=== PATIENT | male | born 1965 | race Two or more races ===

== ENCOUNTER 2023-09-14 03:42 | Emergency (ER) | payer OTHER ==
[~2023-09-14] VITALS: Ht 170.2 cm; Wt 83.9 kg
[2023-09-14] MEDS ORDERED: RINGERS SOLUTION,LACTATED 1,000 ML IV STA (04:48)
[2023-09-14] MEDS ORDERED: MEPERIDINE HCL/PF 50 MG/ML VIAL IM STA (04:49)
[2023-09-14] MEDS ORDERED: HYOSCYAMINE SULFATE 0.125 MG TAB.SUBL SL STA (04:49)
[2023-09-14] MEDS ORDERED: PROMETHAZINE HCL 25 MG/ML AMPUL IM STA (04:50)
[2023-09-14 05:45] LABS: HEMATOCRIT 47.5 % (39.0-48.0); MEAN CELL VOLUME 95.5 fL (80.0-100.00); MEAN CORPUSCULAR HEMOGLOBIN 32.2 pg (27.00-32.0); MEAN CORPUSCULAR HGB CONC 33.7 g/dl (32.0-36.0); PLATELET COUNT 281 K/uL (150-450); RED BLOOD COUNT 4.97 M/uL (4.00-6.00); RED CELL DISTRIBUTION WIDTH 13.9 % (11.5-14.5)
[2023-09-14 06:06] LABS: CALCIUM 8.9 mg/dL (8.5-10.1); CREATININE SERUM 1.16 mg/dL (0.70-1.30); GFR 64.66; POTASSIUM 3.41 mEq/L (3.5-5.1)
[2023-09-14 06:13] LABS: INR 0.98; PROTHROMBIN TIME 10.3 SECONDS (9.0-11.5)
[2023-09-14 06:23] LABS: PH,URINE 5.5 (5.0-8.0); URINE APPEARANCE Clear; URINE BILIRRUBIN Negative (NEGATIVE); URINE BLOOD Negative; URINE COLOR Yellow; URINE GLUCOSE Negative (NEGATIVE); URINE LEUKOCYTE Negative; URINE NITRATE Negative; URINE PROTEIN 30 (NEGATIVE)
[2023-09-14 06:26] LABS: URINE BACTERIA 16.3 uL (0.0-1933); URINE WBC 3.7 uL (0.0-23.2)
[2023-09-14 06:33] LABS: URINE RBC 1.6 uL (0.0-20.8)
[2023-09-14] MEDS ORDERED: PIPERACILLIN/TAZOBACTAM SODIUM 3.375 GM VIAL IV STA (07:25)
== END 2023-09-14 10:13 | disposition home or self-care (01) ==
LOC: ER 03:43
DX: R10.31 Right lower quadrant pain (principal); R10.9 Unspecified abdominal pain
CPT/HCPCS: 36415; 74177; Q9965

== ENCOUNTER 2024-05-26 14:16 | Inpatient (IN) | payer OTHER ==
[~2024-05-26] VITALS: Ht 170.2 cm; Wt 80.7 kg
[2024-05-26] MEDS ORDERED: ANTIVERT25 M2 PO (14:25)
[2024-05-26] MEDS ORDERED: ROSUVASTATIN CAL5 MG PO (14:25)
--- NOTE | 2024-05-26 14:27 | NUR ---
PTE REFIEFE DOLOR ABDOMIAL ACOMPANADO DE NAUSEAS. SE LE KEVIN S/V Y SE DOCUMENTA.
[2024-05-26] MEDS ORDERED: ONDANSETRON HCL 2 MG/ML VIAL ONE (15:43)
[2024-05-26] MEDS ORDERED: FAMOTIDINE/PF 20 MG/2 ML VIAL ONE (15:43)
[2024-05-26] MEDS ORDERED: FAMOTIDINE/PF 20 MG/2 ML VIAL IV PUSH ONE (15:45)
[2024-05-26] MEDS ORDERED: MORPHINE SULFATE 2 MG/ML SYRINGE IV ONE (15:45)
[2024-05-26] MEDS ORDERED: ONDANSETRON HCL 2 MG/ML VIAL IV ONE (15:45)
[2024-05-26] MEDS ORDERED: 0.9 % SODIUM CHLORIDE 1,000 ML IV SCH ×2 (15:45→19:15)
--- NOTE | 2024-05-26 15:57 | NUR ---
SE EDUCA PACIENTE SOBRE EL [place] MEDICO Y ESTA REFIERE ENTENDER. SE CANALIZA Y SE ADMINITRA MEDICAMENTOS EMMETT ORDEN MEDICA. SE KEVIN MUESTRAS DE LABORATORIOS Y SE ENVIAN. SE ENTREGA ENVASE DE U/A. PENDIENTE A CT SCAN
[2024-05-26 15:59] LABS: HEMATOCRIT 44.1 % (39.0-48.0); HEMOGLOBIN 14.8 g/dL (13-16.00); MEAN CELL VOLUME 91.2 fL (80.0-100.00); MEAN CORPUSCULAR HEMOGLOBIN 30.6 pg (27.00-32.0); MEAN CORPUSCULAR HGB CONC 33.6 g/dl (32.0-36.0); PLATELET COUNT 235 K/uL (150-450); RED BLOOD COUNT 4.84 M/uL (4.00-6.00); RED CELL DISTRIBUTION WIDTH 13.3 % (11.5-14.5)
[2024-05-26 16:35] LABS: ALBUMIN 3.7 gm/dL (3.4-5.0); BILIRUBIN TOTAL 0.76 mg/dL (0.3-1.2); CALCIUM 9.3 mg/dL (8.5-10.1); CREATININE SERUM 1.17 mg/dL (0.70-1.30); GFR 64.03; GLOBULINA 3.4 G/DL (2.4-3.5); POTASSIUM 3.51 mEq/L (3.5-5.1); TOTAL PROTEIN 7.1 gm/dL (6.4-8.2)
[2024-05-26] MEDS ORDERED: PROMETHAZINE HCL 50 MG/ML AMPUL IM ONE ×2 (16:43→16:45)
[2024-05-26 17:12] LABS: PH,URINE 5.5 (5.0-8.0); URINE APPEARANCE Clear; URINE BILIRRUBIN Negative (NEGATIVE); URINE BLOOD Negative; URINE COLOR Yellow; URINE GLUCOSE Negative (NEGATIVE); URINE LEUKOCYTE Negative; URINE NITRATE Negative; URINE PROTEIN Negative (NEGATIVE); URINE UROBILINOGEN 0.2 E.U./dl
[2024-05-26 17:16] LABS: URINE BACTERIA 4.8 uL (0.0-1933); URINE EPITHELIAL CELLS 1.5 uL (0.0-38.8); URINE WBC 2.3 uL (0.0-23.2)
[2024-05-26 17:25] LABS: URINE CAST 0.29 uL (0.0-1.40); URINE KETONE 80 (NEGATIVE); URINE RBC 0.5 uL (0.0-20.8)
[2024-05-26] MEDS ORDERED: PIPERACILLIN/TAZOBACTAM SODIUM 3.375 GM in 0.9 % SODIUM CHLORIDE 100 ML IV SCH (19:14)
[2024-05-26] MEDS ORDERED: ONDANSETRON HCL 4 MG in 0.9 % SODIUM CHLORIDE 50 ML IV PRN (19:15)
[2024-05-26] MEDS ORDERED: MORPHINE SULFATE 2 MG/ML CARTRIDGE IV PRN (19:15)
[2024-05-26] MEDS ORDERED: ACETAMINOPHEN 500 MG GEL..CAP PO PRN (19:15)
[2024-05-26] MEDS ORDERED: PIPERACILLIN/TAZOBACTAM SODIUM 3.375 GM VIAL IV ONE (20:13)
[2024-05-26 20:59] LABS: INR 1.02; PARTIAL THROMBOPLASTIN TIME 24.7 SECONDS (22.0-34.0); PROTHROMBIN TIME 11.1 SECONDS (9.0-11.5)
[2024-05-26] MEDS ORDERED: BUPIVACAINE HCL 30 ML VIAL IJ ONE (22:15)
[2024-05-26] MEDS ORDERED: SUGAMMADEX SODIUM 200 MG/2 ML VIAL IV ONE (22:30)
[2024-05-26] MEDS ORDERED: KETOROLAC TROMETHAMINE 30 MG VIAL IV PRN (23:00)
[2024-05-27] MEDS ORDERED: PIPERACILLIN/TAZOBACTAM SODIUM 3.375 GM VIAL IV ONE (00:50)
[2024-05-27 02:23] VITALS: BP 131/83
[2024-05-27 08:46] VITALS: BP 117/80
[2024-05-27] MEDS ORDERED: FAMOTIDINE/PF 20 MG in 0.9 % SODIUM CHLORIDE 8 ML IV PUSH SCH (09:00)
[2024-05-27] MEDS ORDERED: SUCRALFATE 1 G TABLET PO SCH (09:00)
[2024-05-27] MEDS ORDERED: SIMETHICONE 125 MG CAPSULE PO SCH (09:00)
[2024-05-27 16:41] VITALS: BP 118/80
[2024-05-27] MEDS ORDERED: METOCLOPRAMIDE HCL 5 MG/ML VIAL IV SCH (21:00)
[2024-05-28 01:01] VITALS: BP 115/73
[2024-05-28] MEDS ORDERED: 0.9 % SODIUM CHLORIDE 10 ML VIAL IJ ONE (03:28)
[2024-05-28 06:54] LABS: HEMATOCRIT 41.1 % (39.0-48.0); HEMOGLOBIN 14.3 g/dL (13-16.00); MEAN CELL VOLUME 91.7 fL (80.0-100.00); MEAN CORPUSCULAR HEMOGLOBIN 31.9 pg (27.00-32.0); MEAN CORPUSCULAR HGB CONC 34.8 g/dl (32.0-36.0); PLATELET COUNT 206 K/uL (150-450); RED BLOOD COUNT 4.48 M/uL (4.00-6.00); RED CELL DISTRIBUTION WIDTH 13.7 % (11.5-14.5)
[2024-05-28 06:57] LABS: ALBUMIN 3.1 gm/dL (3.4-5.0); BILIRUBIN TOTAL 0.73 mg/dL (0.3-1.2); CALCIUM 8.8 mg/dL (8.5-10.1); CREATININE SERUM 1.41 mg/dL (0.70-1.30); GFR 51.62; GLOBULINA 2.9 G/DL (2.4-3.5); POTASSIUM 4.2 mEq/L (3.5-5.1)
[2024-05-28 08:34] VITALS: BP 134/98; O2SAT 96
[2024-05-28] MEDS ORDERED: RINGERS SOLUTION,LACTATED 1,000 ML IV SCH ×2 (10:30→16:45)
[2024-05-28 17:28] VITALS: BP 124/74; O2SAT 97
[2024-05-29 01:08] VITALS: BP 116/77; O2SAT 95
[2024-05-29 06:39] LABS: ALBUMIN 2.7 gm/dL (3.4-5.0); BILIRUBIN TOTAL 0.5 mg/dL (0.3-1.2); CALCIUM 8.6 mg/dL (8.5-10.1); CREATININE SERUM 0.96 mg/dL (0.70-1.30); GFR 80.45; GLOBULINA 2.7 G/DL (2.4-3.5); POTASSIUM 4.11 mEq/L (3.5-5.1); TOTAL PROTEIN 5.4 gm/dL (6.4-8.2)
[2024-05-29 08:15] VITALS: BP 134/90
== END 2024-05-29 14:47 | disposition home or self-care (01) | DRG 399 ==
LOC: ER 14:19 → MEDJ 20:24 → MEDI 20:24
PROVIDERS: Emergency Medicine; General Practice; Surgery; ADMIT Internal Medicine; ATTEND Internal Medicine
PROC: BW21YZZ Computerized Tomography (CT Scan) of Abdomen and Pelvis using Other Contrast (ICD-10-PCS; 2024-05-26)
PROC: 0DTJ4ZZ Resection of Appendix, Percutaneous Endoscopic Approach (ICD-10-PCS; principal; 2024-05-26 20:15)
DX: K35.890 Other acute appendicitis without perforation or gangrene (principal); E78.5 Hyperlipidemia, unspecified